=== PATIENT | female | born 1995 | race Caucasian/White ===

== ENCOUNTER 2017-03-12 11:48 | Emergency (ER) | payer OTHER ==
[2017-03-12 12:07] VITALS: BP 105/52; PULSE 61; TEMP 98.6; BMI 25.9
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
== END 2017-03-12 12:59 | disposition home or self-care (01) ==
LOC: JERFT 11:48
DX: S00.83XA Contusion of other part of head, initial encounter (principal); S29.012A Strain of muscle and tendon of back wall of thorax, initial encounter; V43.52XA Car driver injured in collision with other type car in traffic accident, initial encounter; Y92.414 Local residential or business street as the place of occurrence of the external cause; Y93.89 Activity, other specified; Y99.8 Other external cause status
CPT/HCPCS: 99281-25

== ENCOUNTER 2017-03-14 11:21 | Emergency (ER) | payer OTHER ==
--- NOTE | 2017-03-14 11:32 | PDOC ---
*Physical Exam - Physical Exam Comments: 03/14/17 11:32 MIDLEVEL NOTE Pt seen by Midlevel Provider under my direct supervision. Pt interviewed and examined. Ancillary studies reviewed. I agree with plan as outlined by Midlevel Provider. 03/14/17 11:57 EKG Normal sinus rhythm 66, normal axis Normal AV and IV conduction time Normal QTC Essentially normal EKG 03/14/17 16:08 Laboratory Results - last 24 hr 03/14/17 03/14/17 03/14/17 11:58 11:58 11:58 WBC 4.4 D RBC 4.38 Hgb 11.8 Hct 36.7 MCV 83.8 MCHC 32.3 RDW 13.8 D Plt Count 239 D MPV 10.2 Neutrophils % 42.2 L D Lymphocytes % 41.0 H D Monocytes % 8.8 Eosinophils % 6.9 H D Basophils % 1.1 Sodium 141 Potassium 4.0 Chloride 104 Carbon Dioxide 26 Anion Gap 11 BUN 7 D Creatinine 0.6 Creat Clearance w eGFR > 60 POC Glucometer Random Glucose 85 Calcium 8.3 L Total Bilirubin 0.2 D AST 12 L D ALT 18 Alkaline Phosphatase 82 D Creatine Kinase 88 Troponin I < 0.02 Total Protein 7.2 Albumin 3.6 Urine Color Ltyellow Urine Appearance Clear Urine pH 5.0 D Urine Protein Negative Urine Glucose (UA) Negative Urine Ketones Negative Urine Blood Negative Urine Nitrite Negative Urine Bilirubin Negative Urine Urobilinogen Negative Ur Leukocyte Esterase Trace H D Urine RBC <1 Urine WBC 3 Ur Epithelial Cells Moderate Urine Bacteria Rare Urine Mucus Rare Urine HCG, Qual Negative 03/14/17 13:05 WBC RBC Hgb Hct MCV MCHC RDW Plt Count MPV Neutrophils % Lymphocytes % Monocytes % Eosinophils % Basophils % Sodium Potassium Chloride Carbon Dioxide Anion Gap BUN Creatinine Creat Clearance w eGFR POC Glucometer 102.72454 Random Glucose Calcium Total Bilirubin AST ALT Alkaline Phosphatase Creatine Kinase Troponin I Total Protein Albumin Urine Color Urine Appearance Urine pH Urine Protein Urine Glucose (UA) Urine Ketones Urine Blood Urine Nitrite Urine Bilirubin Urine Urobilinogen Ur Leukocyte Esterase Urine RBC Urine WBC Ur Epithelial Cells Urine Bacteria Urine Mucus Urine HCG, Qual syncope ED Treatment Course - LABORATORY CBC & Chemistry Diagram: 03/14/17 11:58 03/14/17 11:58 *DC/Admit/Observation/Transfer Diagnosis at time of Disposition: Syncope Qualifiers: Syncope type: unspecified Qualified Code(s): R55 - Syncope and collapse - Discharge Dispostion Disposition: HOME Condition at time of disposition: Good - Patient Instructions Printed Discharge Instructions: DI for Syncope in Adults (Fainting) Additional Instructions: Please follow up with your primary care physician. Please eat small frequent well-balanced meals throughout the day. - Post Discharge Activity Work/School Note: Back to Work
[2017-03-14] MEDS ORDERED: SODIUM CHLORIDE 1,000 ML IV STA (11:43)
[2017-03-14] MEDS ORDERED: ACETAMINOPHEN 500 MG TABLET (FP) PO ONE (11:43)
[2017-03-14 11:50] VITALS: TEMP 97.8; BMI 25.7
[2017-03-14] MEDS ORDERED: ACETAMINOPHEN 325 MG TABLET (FP) ONE (12:09)
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
[2017-03-14 13:08] LABS: BASOPHIL 1.1 % (0-2.0); EOSINOPHIL 6.9 % (0-4.5); MCH 27.1 pg (25.7-33.7); MCHC 32.3 g/dl (32.0-36.0); MEAN CELL VOLUME 83.8 fl (80-96); MEAN PLT VOLUME 10.2 fl (7.5-11.1); NEUTROPHILS 42.2 % (42.8-82.8); PLATELET COUNT 239 K/MM3 (134-434); RDW 13.8 % (11.6-15.6); URINE APPEARANCE CLEAR; URINE BILIRUBIN NEGATIVE (NEGATIVE); URINE BLOOD NEGATIVE (NEGATIVE); URINE COLOR LTYELLOW; URINE GLUCOSE (UA) NEGATIVE (NEGATIVE); URINE KETONE NEGATIVE (NEGATIVE); URINE NITRITE NEGATIVE (NEGATIVE); URINE PROTEIN NEGATIVE (NEGATIVE); URINE UROBILINOGEN NEGATIVE E.U./dl (0.2-1.0); WHITE BLOOD COUNT 4.4 K/mm3 (4.0-10.0)
[2017-03-14 13:20] LABS: URINE LEUK ESTERASE TRACE (NEGATIVE)
[2017-03-14 13:21] LABS: URINE BACTERIA RARE /hpf (NONE SEEN); URINE MUCUS RARE; URINE RBC <1 /hpf (0-3); URINE WBC 3 /hpf (3-5)
[2017-03-14 13:32] LABS: ALBUMIN 3.6 g/dl (3.4-5.0); ANION GAP 11 (8-16); BILIRUBIN,TOTAL 0.2 mg/dL (0.2-1.0); CALCIUM 8.3 mg/dL (8.5-10.1); CO2 26 mmol/L (21-32); CREATININE 0.6 mg/dL (0.55-1.02); GLUCOSE,RANDOM 85 mg/dL (74-106); SGOT/AST 12 U/L (15-37); SGPT/ALT 18 U/L (12-78); TOT PROT 7.2 g/dl (6.4-8.2)
[2017-03-14 13:34] LABS: ALK PHOS 82 U/L (45-117); TROPONIN I < 0.02 ng/ml (0.00-0.05)
[2017-03-14 15:09] VITALS: BP 102/60; PULSE 62
--- NOTE | 2017-03-14 15:27 | EKG ---
Test Reason : Blood Pressure : / mmHG Vent. Rate : 066 BPM Atrial Rate : 066 BPM P-R Int : 110 ms QRS Dur : 082 ms QT Int : 382 ms P-R-T Axes : 020 056 029 degrees QTc Int : 400 ms SINUS RHYTHM WITH SHORT NM OTHERWISE NORMAL ECG NO PREVIOUS ECGS AVAILABLE Confirmed by LAKISHA VERDUZCO MD ([id number]) on 03/14/2017 3:27:17 PM Referred By: Confirmed By:LAKISHA VERDUZCO MD
== END 2017-03-14 16:07 | disposition home or self-care (01) ==
LOC: JER 11:21
PROC: 3E0337Z Introduction of Electrolytic and Water Balance Substance into Peripheral Vein, Percutaneous Approach (ICD-10-PCS; principal; 2017-03-14)
DX: R55 Syncope and collapse (principal)
CPT/HCPCS: 36415; 70450-TC; 80053; 81003; 81015; 82550; 84484; 84703; 85025; 93005; 93010; 99285-25

== ENCOUNTER 2017-05-09 11:00 | Emergency (ER) | payer OTHER ==
[2017-05-09 11:07] VITALS: BP 110/56; PULSE 60; TEMP 98.5; BMI 26.2
--- NOTE | 2017-05-09 11:24 | PDOC ---
History of Present Illness - General History Source: Patient Exam Limitations: No Limitations - History of Present Illness Initial Comments: 05/09/17 13:21 The patient is a 21-year-old woman, A0, currently approximately 4 weeks , with no past medical history who presents to the emergency department with complaints of vaginal bleeding since this morning. No trauma/fall. Patient states that she took delicia home tests last week that confirmed a . Patient states that this morning, she woke up with lower abdominal pain, described as cramping, with a rated 6/10 in severity. Upon awakening, patient noted significant amount of blood on her bed. Patient states that her bleeding has stopped but is concern for possible miscarriage. Patient has yet to start care, but has an appointment with her Air Brake Man and Early Childhood Associate Teacher tomorrow. No fever, chills, nausea,vomiting. No urinary complaints. Allergies: No Known Drug Allergies. Blueberry Past Surgical History: None reported. Social History: No tobacco, EtOH and recreational drug use. 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 <Judy Wray - Last Filed: 05/09/17 13:21> <Temitope Matos - Last Filed: 05/09/17 15:10> - General Chief Complaint: Vaginal Bleeding Stated Complaint: POSSIBLE MISCARRIAGE Time Seen by Provider: 05/09/17 11:20 Past History <Judy Wray - Last Filed: 05/09/17 13:21> - Past Medical History Anemia: Yes - Reproductive History (#): 1 Para: 0 - Psycho/Social/Smoking Cessation Hx Anxiety: No Suicidal Ideation: No Smoking Status: No Smoking History: Never smoked Have you smoked in the past 12 months: No Number of Cigarettes Smoked Daily: 0 Hx Alcohol Use: No Drug/Substance Use Hx: No Substance Use Type: None <Temitope Matos - Last Filed: 05/09/17 15:10> - Past Medical History Allergies/Adverse Reactions: Allergies Allergy/AdvReac Type Severity Reaction Status Date / Time blueberry Allergy Verified 05/09/17 11:02 Home Medications: Ambulatory Orders No Home Medications 0 dose .ROUTE UTDICT 03/02/13 Review of Systems - Review of Systems Able to Perform ROS?: Yes Comments:: 05/09/17 13:21 GENERAL/CONSTITUTIONAL: No fever or chills. No weakness. GASTROINTESTINAL: Yes: Abdominal cramping. No nausea, vomiting, diarrhea or constipation. GENITOURINARY: No dysuria, frequency, or change in urination. MUSCULOSKELETAL: No joint or muscle swelling or pain. No neck or back pain. HEMATOLOGIC/LYMPHATIC: Yes: Vaginal bleeding. No history of blood clots. <Judy Wray - Last Filed: 05/09/17 13:21> *Physical Exam - Vital Signs Last Vital Signs Temp Pulse Resp BP Pulse Ox 98.5 F 60 19 110/56 99 05/09/17 11:02 05/09/17 11:02 05/09/17 11:02 05/09/17 11:02 05/09/17 11:02 - Physical Exam Comments: 05/09/17 13:21 GENERAL: Awake, alert, and fully oriented, in no acute distress HEAD: No signs of trauma EYES: PERRLA, EOMI, sclera anicteric, conjunctiva clear ENT: Auricles normal inspection, hearing grossly normal, nares patent, oropharynx clear without exudates. Moist mucosa NECK: Normal ROM, supple, no lymphadenopathy, JVD, or masses LUNGS: Breath sounds equal, clear to auscultation bilaterally. No wheezes, and no crackles HEART: Regular rate and rhythm, normal S1 and S2, no murmurs, rubs or gallops ABDOMEN: Soft, nontender, normoactive bowel sounds. No guarding, no rebound. No masses EXTREMITIES: Normal range of motion, no edema. No clubbing or cyanosis. No cords, erythema, or tenderness NEUROLOGICAL: Cranial nerves II through XII grossly intact. Normal speech <Judy Wray - Last Filed: 05/09/17 13:21> - Vital Signs Last Vital Signs Temp Pulse Resp BP Pulse Ox 98.5 F 60 19 110/56 99 05/09/17 11:02 05/09/17 11:02 05/09/17 11:02 05/09/17 11:02 05/09/17 11:02 - Physical Exam Comments: PELVIC: No external lesions. Trace blood in the vault. Os closed. No adnexal tenderness. <Temitope Matos - Last Filed: 05/09/17 15:10> ED Treatment Course - LABORATORY CBC & Chemistry Diagram: 05/09/17 11:35 05/09/17 11:35 - ADDITIONAL ORDERS Additional order review: Laboratory Results 05/09/17 05/09/17 11:35 11:35 Sodium 139 Potassium 4.2 Chloride 104 Carbon Dioxide 29 Anion Gap 6 L BUN 10 D Creatinine 0.7 Creat Clearance w eGFR > 60 Random Glucose 86 Calcium 8.8 Total Bilirubin 0.6 D AST 14 L ALT 17 Alkaline Phosphatase 65 D Total Protein 7.5 Albumin 3.8 Beta HCG, Quant < 1.0 Blood Type B POSITIVE Antibody Screen Negative 05/09/17 11:35 RBC 4.43 MCV 81.2 MCHC 32.8 RDW 16.7 H D MPV 9.0 D Neutrophils % 34.1 L Lymphocytes % 45.6 H Monocytes % 9.1 Eosinophils % 9.8 H Basophils % 1.4 <Judy Wray - Last Filed: 05/09/17 13:21> - LABORATORY CBC & Chemistry Diagram: 05/09/17 11:35 05/09/17 11:35 <Temitope Matos - Last Filed: 05/09/17 15:10> Medical Decision Making - Medical Decision Making Patient's B-HCG negative. In light of the recent positive UCG at home, I suspect that she miscarried shortly after the UCG, then the products did not pass until today. Bleeding is minimal at present. 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 NSAIDs for pain. <Temitope Matos - Last Filed: 05/09/17 15:10> *DC/Admit/Observation/Transfer - Attestations Scribe Attestion: 05/09/17 13:21 Documentation prepared by Judy Wray, acting as medical laboratory specialist for Temitope Matos MD. <Judy Wray - Last Filed: 05/09/17 13:21> - Discharge Dispostion Admit: No <Temitope Matos - Last Filed: 05/09/17 15:10> Diagnosis at time of Disposition: Miscarriage - Discharge Dispostion Disposition: HOME Condition at time of disposition: Stable - Patient Instructions Printed Discharge Instructions: DI for Miscarriage - Post Discharge Activity Work/School Note: Back to Work
[2017-05-09 11:46] LABS: BASOPHIL 1.4 % (0-2.0); EOSINOPHIL 9.8 % (0-4.5); MCH 26.6 pg (25.7-33.7); MCHC 32.8 g/dl (32.0-36.0); MEAN CELL VOLUME 81.2 fl (80-96); NEUTROPHILS 34.1 % (42.8-82.8); PLATELET COUNT 259 K/MM3 (134-434); RDW 16.7 % (11.6-15.6); WHITE BLOOD COUNT 3.8 K/mm3 (4.0-10.0)
[2017-05-09 12:23] LABS: ALBUMIN 3.8 g/dl (3.4-5.0); ANION GAP 6 (8-16); BILIRUBIN,TOTAL 0.6 mg/dL (0.2-1.0); CALCIUM 8.8 mg/dL (8.5-10.1); CO2 29 mmol/L (21-32); CREATININE 0.7 mg/dL (0.55-1.02); GLUCOSE,RANDOM 86 mg/dL (74-106); SGOT/AST 14 U/L (15-37); SGPT/ALT 17 U/L (12-78); TOT PROT 7.5 g/dl (6.4-8.2)
[2017-05-09 12:25] LABS: ALK PHOS 65 U/L (45-117)
[2017-05-09] MEDS ORDERED: IBUPROFEN 600 MG TABLET (FP) PO ONE (13:20)
[2017-05-09 13:42] LABS: URINE APPEARANCE CLEAR; URINE BILIRUBIN NEGATIVE (NEGATIVE); URINE COLOR LTYELLOW; URINE GLUCOSE (UA) NEGATIVE (NEGATIVE); URINE KETONE NEGATIVE (NEGATIVE); URINE LEUK ESTERASE NEGATIVE (NEGATIVE); URINE NITRITE NEGATIVE (NEGATIVE); URINE PROTEIN NEGATIVE (NEGATIVE); URINE UROBILINOGEN NEGATIVE E.U./dl (0.2-1.0)
[2017-05-09 13:46] LABS: URINE BLOOD 3+ (NEGATIVE)
[2017-05-09 14:29] LABS: URINE MUCUS RARE; URINE RBC 438 /hpf (0-3); URINE WBC 6 /hpf (3-5)
== END 2017-05-09 13:34 | disposition home or self-care (01) ==
LOC: JER 11:00
DX: O02.1 Missed abortion (principal); Z3A.01 Less than 8 weeks gestation of pregnancy
CPT/HCPCS: 36415; 80053; 81003; 81015; 84702; 85025; 86850; 86900; 86901; 99282-25

== ENCOUNTER 2017-09-22 11:46 | Emergency (ER) | payer OTHER ==
[2017-09-22 11:52] VITALS: BP 133/65; PULSE 94; TEMP 98.6; BMI 26.9
[2017-09-22] MEDS ORDERED: DEXAMETHASONE LIQUID 0.5 MG/5 ML 240 ML BULK BOTTLE PO ONE (12:40)
--- NOTE | 2017-09-22 12:51 | PDOC ---
History of Present Illness - General Chief Complaint: Sore Throat Stated Complaint: THROAT PAIN Time Seen by Provider: 09/22/17 12:22 History Source: Patient Exam Limitations: No Limitations - History of Present Illness Initial Comments: 09/22/17 13:56 Patient is a 21 year-old female, no significant medical history currently on no medication, reports having sore throat for 6 days, thought she was feeling better yesterday today woke up with increased sore throat and dysphasia, no fever. Past Medical History: [Denies]. Allergies: No known allergies Medications: [None] Family History: Non-contributory Social History: Denies smoking, alcohol use, or IVDU Review of Systems GENERAL/CONSTITUTIONAL: [No fever or chills. No weakness. No weight change.] HEAD, EYES, EARS, NOSE AND THROAT: [No change in vision. No ear pain or discharge. No sore throat. ] CARDIOVASCULAR: [No chest pain or shortness of breath.] RESPIRATORY: [No cough, wheezing, or hemoptysis.] GASTROINTESTINAL: [No nausea, vomiting, diarrhea or constipation. No rectal bleeding.] GENITOURINARY: [No dysuria, frequency, or change in urination.] MUSCULOSKELETAL: [No joint or muscle swelling or pain. No neck or back pain.] SKIN : [No rash or easy bruising.] NEUROLOGIC: [No headache, vertigo, loss of consciousness, or loss of sensation.] PSYCHIATRIC: [No depression or anxiety.] ENDOCRINE: [No increased thirst. No abnormal weight change.] HEMATOLOGIC/LYMPHATIC: [No anemia, easy bleeding, or history of blood clots. Bilateral painful anterior cervical lymph nodes] ALLERGIC/IMMUNOLOGIC: [No hives or skin allergy. No latex allergy.] Physical Exam: GENERAL: [The patient is awake, alert, and fully oriented, in no acute distress. ] HEAD: [Normal with no signs of trauma.] EYES: [Pupils equal, round and reactive to light, extraocular movements intact, sclera anicteric, conjunctiva clear.] ENT: [Ears normal, nares patent, oropharynx erythematous without exudates. Moist mucous membranes. No uvula deviation] NECK: [Normal range of motion,, pain on palpation to bilateral anterior cervical lymph nodes, no JVD, or masses.] LUNGS: [Breath sounds equal, clear to auscultation bilaterally. No wheezes, and no crackles.] HEART: [Regular rate and rhythm, normal S1 and S2 without murmur, rub or gallop. ] ABDOMEN: [Soft, nontender, normoactive bowel sounds. No guarding, no rebound. No masses. No bruising or abrasions] MUSCULOSKELETAL: [Normal range of motion, no edema. No clubbing or cyanosis. No cords, erythema, or tenderness. No CVA Tenderness with fist.] NEUROLOGICAL: [Cranial nerves II through XII grossly intact. Normal speech, normal gait.] SKIN: [Warm, Dry, normal turgor, no rashes or lesions noted.] 09/22/17 14:54 Past History - Past Medical History Allergies/Adverse Reactions: Allergies Allergy/AdvReac Type Severity Reaction Status Date / Time blueberry Allergy Verified 09/22/17 11:52 Home Medications: Ambulatory Orders No Home Medications 0 dose .ROUTE UTDICT 03/02/13 Anemia: Yes COPD: No - Reproductive History (#): 1 Para: 0 Therapeutic (s) & number: No Spontaneous : 0 - Suicide/Smoking/Psychosocial Hx Smoking Status: No Smoking History: Never smoked Have you smoked in the past 12 months: No Number of Cigarettes Smoked Daily: 0 Hx Alcohol Use: No Drug/Substance Use Hx: No Substance Use Type: None *Physical Exam - Vital Signs Last Vital Signs Temp Pulse Resp BP Pulse Ox 98.6 F 94 H 20 133/65 98 09/22/17 11:49 09/22/17 11:49 09/22/17 11:49 09/22/17 11:49 09/22/17 11:49 Medical Decision Making - Medical Decision Making 09/22/17 14:00 A/P: Patient here for evaluation of sore throat for 6 days, painful bilateral anterior cervical lymph nodes with no lymphadenopathy because of painful lymph nodes to bilateral sides, will send monoscreen, rapid strep sent Strep is negative, monoscreen is pending 09/22/17 14:54 Patient positive for mono, patient discharged on supportive care increase fluids Tylenol only for fever, no Motrin or Advil or Aleve. No physical activity or gym until cleared by MD. I discussed the physical exam findings, ancillary test results and final diagnoses with the patient. I answered all of the patient's questions. The patient was satisfied with the care received and felt comfortable with the discharge plan and treatment plan. The patient will call to arrange follow-up and will return to the Emergency Department with any new, persistent or worsening symptoms. *DC/Admit/Observation/Transfer Diagnosis at time of Disposition: Mononucleosis - Discharge Dispostion Disposition: HOME Condition at time of disposition: Good Admit: No - Referrals Referrals: [facility] [Provider Group] - Patient Instructions Printed Discharge Instructions: DI for Mononucleosis-Adult Additional Instructions: 1. Increase fluid. 2. Pedialyte or Gatorade. 3. No gym, follow-up with primary care doctor for clearance to return to physical activity 4. Warm saltwater gargles. 5. Please follow up with PMD in 3 days if symptoms not resolving. 6. Please return to the ER unable to drink or eat, increased fever or other concerns Only Tylenol as needed for fever - Post Discharge Activity Forms/Work/School Notes: Back to Work, Back to School
== END 2017-09-22 14:28 | disposition home or self-care (01) ==
LOC: JERFT 11:46
DX: B27.80 Other infectious mononucleosis without complication (principal)
CPT/HCPCS: 36415; 86308; 87070; 87077; 87430; 99281-25

== ENCOUNTER 2018-01-15 04:02 | Emergency (ER) | payer OTHER ==
[2018-01-15 04:23] VITALS: BP 112/50; PULSE 74; TEMP 98; BMI 25.7
--- NOTE | 2018-01-15 04:30 | PDOC ---
History of Present Illness - General History Source: Patient Exam Limitations: No Limitations - History of Present Illness Initial Comments: 01/15/18 04:57 The patient is a 22 year old female with a significant PMH of anemia who presents to the emergency department with left eye pain and left eyelid swelling s/p syncopal episode prior to arrival. The patient reports being in the shower when she lost consciousness for a brief period and hit her head on the wall. The patient reports she is currently on her period and has been bleeding heavy, and notes this may have contributed to her syncope given her anemic history. The patient denies chest pain and shortness of breath. She denies any presyncopal symptoms. The patient denies chest pain, shortness of breath, headache and dizziness. Denies fever, chills, nausea, vomit, diarrhea and constipation. Denies dysuria, frequency, urgency and hematuria. Allergies: NKA Past surgical history: None reported. Social history: No reported cigarette, alcohol, or drug use. PCP: Dr. Ochoa <Jean Blackburn - Last Filed: 01/15/18 05:08> - General History Source: Patient <MalickKyree anderson - Last Filed: 01/15/18 06:29> - General Chief Complaint: Syncope/Near Syncope Stated Complaint: SYNCOPE Time Seen by Provider: 01/15/18 04:27 Past History <Jean Blackburn - Last Filed: 01/15/18 05:08> - Past Medical History Anemia: Yes COPD: No - Reproductive History (#): 1 Para: 0 Therapeutic (s) & number: No Spontaneous : 0 - Suicide/Smoking/Psychosocial Hx Smoking Status: No Smoking History: Never smoked Have you smoked in the past 12 months: No Number of Cigarettes Smoked Daily: 0 Information on smoking cessation initiated: No Hx Alcohol Use: No Drug/Substance Use Hx: No Substance Use Type: None <Kyree Oliva - Last Filed: 01/15/18 06:29> - Past Medical History Allergies/Adverse Reactions: Allergies Allergy/AdvReac Type Severity Reaction Status Date / Time blueberry Allergy Verified 01/15/18 04:20 Home Medications: Ambulatory Orders No Home Medications 0 dose .ROUTE UTDICT 03/02/13 Amox-Tr/K Cl [Augmentin 875Mg Tablet] 1 tab PO BID #20 tablet 01/15/18 Amoxicillin/Potassium Clav [Augmentin 875-125 Tablet] 1 each PO BID #20 tablet 01/15/18 Ibuprofen 800 mg PO TID #30 tablet 01/15/18 Oxycodone HCl/Acetaminophen [Percocet 5-325 mg Tablet] 1 - 2 tab PO Q6H #20 tablet MDD 3 01/15/18 Review of Systems - Review of Systems Able to Perform ROS?: Yes Comments:: 01/15/18 04:57 CONSTITUTIONAL: Absent: fever, chills, diaphoresis, generalized weakness, malaise, loss of appetite HEENT: (+) Left eye pain and left eyelid swelling. Absent: rhinorrhea, nasal congestion, throat pain, throat swelling, difficulty swallowing, mouth swelling, ear pain, eye pain, visual Changes CARDIOVASCULAR: Absent: chest pain, syncope, palpitations, irregular heart rate, lightheadedness , peripheral edema RESPIRATORY: Absent: cough, shortness of breath, dyspnea with exertion, orthopnea, wheezing, stridor, hemoptysis GASTROINTESTINAL: Absent: abdominal pain, abdominal distension, nausea, vomiting, diarrhea, constipation, melena, hematochezia GENITOURINARY: Absent: dysuria, frequency, urgency, hesitancy, hematuria, flank pain, genital pain MUSCULOSKELETAL: Absent: myalgia, arthralgia, joint swelling SKIN: Absent: rash, itching, pallor HEMATOLOGIC/IMMUNOLOGIC: Absent: easy bleeding, easy bruising, lymphadenopathy, frequent infections ENDOCRINE: Absent: unexplained weight gain, unexplained weight loss, heat intolerance, cold intolerance NEUROLOGIC: (+) Syncope Absent: headache, focal weakness or paresthesias, dizziness, unsteady gait, seizure, mental status changes, bladder or bowel incontinence PSYCHIATRIC: Absent: anxiety, depression, suicidal or homicidal ideation, hallucinations. <Jean Blackburn - Last Filed: 01/15/18 05:08> *Physical Exam - Vital Signs Last Vital Signs Temp Pulse Resp BP Pulse Ox 98.0 F 74 14 112/50 99 01/15/18 04:21 01/15/18 04:21 01/15/18 04:21 01/15/18 04:21 01/15/18 04:21 - Physical Exam Comments: 01/15/18 04:58 GENERAL: Well developed, well nourished. Awake and alert. No acute distress. HEENT: (+) Periorbital swelling, predominantly above left eyebrow and around left eyelid. No entrapment. No subconjunctival hemorrhage. Eyes able to be opened. Normocephalic. PERRLA, EOMI. No conjunctival pallor. Sclera are non-icteric. Moist mucous membranes. Oropharynx is clear. NECK: Supple. Full ROM. No JVD. Carotid pulses 2+ and symmetric, without bruits. No thyromegaly. No lymphadenopathy. CARDIOVASCULAR: Regular rate and rhythm. No murmurs, rubs, or gallops. Distal pulses are 2+ and symmetric. PULMONARY: No evidence of respiratory distress. Lungs clear to auscultation bilaterally. No wheezing, rales or rhonchi. ABDOMINAL: Soft. Non-tender. Non-distended. No rebound or guarding. No organomegaly. Normoactive bowel sounds. MUSCULOSKELETAL Normal range of motion at all joints. No bony deformities or tenderness. No CVA tenderness. EXTREMITIES: No cyanosis. No clubbing. No edema. No calf tenderness. SKIN: Warm and dry. Normal capillary refill. No rashes. No jaundice. NEUROLOGICAL: Alert, awake, appropriate. Cranial nerves 2-12 intact. No deficits to light touch and temperature in face, upper extremities and lower extremities. No motor deficits in the in face, upper extremities and lower extremities. Normoreflexic in the upper and lower extremities. Normal speech. Toes are downgoing bilaterally. Gait is normal without ataxia. PSYCHIATRIC: Cooperative. Good eye contact. Appropriate mood and affect. <Jean Blackburn - Last Filed: 01/15/18 05:08> - Vital Signs Last Vital Signs Temp Pulse Resp BP Pulse Ox 98.0 F 74 14 112/50 99 01/15/18 04:21 01/15/18 04:21 01/15/18 04:21 01/15/18 04:21 01/15/18 04:21 <Kyree Oliva - Last Filed: 01/15/18 06:29> Heart Score/ECG Review #1 01/15/18 05:09 Vent rate 65 bpm Normal sinus rhythm Cannot rule out anterior infarct, age undetermined Abnormal ECG <Jean Blackburn - Last Filed: 01/15/18 05:08> ED Treatment Course - LABORATORY CBC & Chemistry Diagram: 01/15/18 04:32 03/14/18 04:32 <Kyree Oliva - Last Filed: 01/15/18 06:29> Medical Decision Making - Medical Decision Making 01/15/18 06:28 Dr. Oliva: The scribe's documentation has been prepared under my direction and personally reviewed by me in its entirery. I confirm that the note above accurately reflects all work, treatment, procedures, and medical decision making performed by me. <Kyree Oliva - Last Filed: 01/15/18 06:29> *DC/Admit/Observation/Transfer - Attestations Scribe Attestion: 01/15/18 04:58 Documentation prepared by Jean Blackburn, acting as medical records specialist for Kyree Oliva DO. <Jaen Blackburn - Last Filed: 01/15/18 05:08> - Discharge Dispostion Admit: No <Kyree Oliva - Last Filed: 01/15/18 06:29> Diagnosis at time of Disposition: Syncope Qualifiers: Syncope type: vasovagal syncope Qualified Code(s): R55 - Syncope and collapse Left orbit fracture Qualifiers: Encounter type: initial encounter Fracture type: closed Qualified Code(s): S02.82XA - Fracture of other specified skull and facial bones, left side, initial encounter for closed fracture - Discharge Dispostion Condition at time of disposition: Stable - Referrals Referrals: Lynnette Ravi MD [Staff Physician] - - Patient Instructions Printed Discharge Instructions: DI for Syncope in Adults (Fainting), DI for Orbital Fracture, DI for Sinusitis Additional Instructions: take medication as directed. apply ice to the area. Follow up with the doctor referred to you. Follow up with doctor for referral to a Oral Maxillary facial Surgeon for evaluation of the fracture. - Post Discharge Activity Forms/Work/School Notes: Back to Work
[2018-01-15] MEDS ORDERED: ACETAMINOPHEN 500 MG TABLET (FP) PO ONE (04:52)
[2018-01-15] MEDS ORDERED: ACETAMINOPHEN INJECTION 100 ML IVPB ONE (04:57)
[2018-01-15] MEDS ORDERED: ACETAMINOPHEN 325 MG TABLET (FP) ONE (04:59)
[2018-01-15] MEDS ORDERED: ACETAMINOPHEN 325 MG TABLET (FP) PO ONE (04:59)
[2018-01-15 05:19] LABS: BASO % 0.6 % (0-2.0); EOS % 0.7 % (0-4.5); HEMATOCRIT 31.7 % (32.4-45.2); HEMOGLOBIN 10.3 GM/dL (10.7-15.3); LYMPH % 15.2 % (8-40); MCH 25.1 pg (25.7-33.7); MCHC 32.5 g/dl (32.0-36.0); MEAN CELL VOLUME 77.2 fl (80-96); MEAN PLT VOLUME 9.4 fl (7.5-11.1); MONO % 4.8 % (3.8-10.2); NEUT % 78.7 % (42.8-82.8); PLATELET COUNT 313 K/MM3 (134-434); RBC 4.11 M/mm3 (3.60-5.2); WHITE BLOOD COUNT 6.4 K/mm3 (4.0-10.0)
[2018-01-15 05:27] LABS: URINE APPEARANCE CLEAR; URINE BILIRUBIN NEGATIVE (NEGATIVE); URINE BLOOD 2+ (NEGATIVE); URINE COLOR YELLOW; URINE GLUCOSE (UA) NEGATIVE (NEGATIVE); URINE KETONE TRACE (NEGATIVE); URINE NITRITE NEGATIVE (NEGATIVE); URINE UROBILINOGEN NEGATIVE mg/dL (0.2-1.0)
[2018-01-15 05:31] LABS: URINE LEUK ESTERASE 1+ (NEGATIVE); URINE PROTEIN 1+ (NEGATIVE)
[2018-01-15 05:34] LABS: EPI CELLS FEW /HPF (FEW); URINE MUCUS RARE
[2018-01-15 05:34] LABS: INR 1.12 (0.82-1.09); PROTHROMBIN TIME (PATIENT) 12.7 SEC (9.98-11.88)
[2018-01-15 05:46] LABS: ALBUMIN 3.7 g/dl (3.4-5.0); ANION GAP 10 (8-16); BILIRUBIN,TOTAL 0.3 mg/dL (0.2-1.0); BLOOD UREA NITROGEN 9 mg/dL (7-18); CALCIUM 8.5 mg/dL (8.5-10.1); CHLORIDE 105 mmol/L (98-107); CO2 25 mmol/L (21-32); CREATININE 0.6 mg/dL (0.55-1.02); GLUCOSE,RANDOM 110 mg/dL (74-106); POTASSIUM 3.8 mmol/L (3.5-5.1); SGOT/AST 16 U/L (15-37); SGPT/ALT 15 U/L (12-78); SODIUM 140 mmol/L (136-145); TOT PROT 7.7 g/dl (6.4-8.2)
[2018-01-15 05:48] LABS: ALK PHOS 59 U/L (45-117)
[2018-01-15] MEDS ORDERED: AMOX TR/POT CLAV 875MG/125MG TABLETS (FP) PO STA (06:20)
[2018-01-15] MEDS ORDERED: IBUPROFEN 400 MG TABLET (FP) PO ONE ×2 (06:21→06:37)
[2018-01-15] MEDS ORDERED: AMOX TR/POT CLAV 875MG/125MG TABLETS (FP) ONE (06:36)
--- NOTE | 2018-01-15 10:47 | EKG ---
Test Reason : Blood Pressure : / mmHG Vent. Rate : 065 BPM Atrial Rate : 065 BPM P-R Int : 112 ms QRS Dur : 086 ms QT Int : 392 ms P-R-T Axes : 010 063 035 degrees QTc Int : 407 ms NORMAL SINUS RHYTHM CANNOT RULE OUT ANTERIOR INFARCT , AGE UNDETERMINED ABNORMAL ECG WHEN COMPARED WITH ECG OF 14-MAR-2017 11:41, NO SIGNIFICANT CHANGE WAS FOUND Confirmed by TYE GUPTA, SANDY ([id number]) on 01/15/2018 10:47:23 AM Referred By: Confirmed By:SANDY GAMBLE MD
== END 2018-01-15 07:01 | disposition home or self-care (01) ==
LOC: JER 04:02
DX: S02.82XA Fracture of other specified skull and facial bones, left side, initial encounter for closed fracture (principal); R55 Syncope and collapse; W22.8XXA Striking against or struck by other objects, initial encounter; Y93.E1 Activity, personal bathing and showering; Y92.012 Bathroom of single-family (private) house as the place of occurrence of the external cause; Y99.8 Other external cause status
CPT/HCPCS: 36415; 70450-TC; 70480-TC; 80053; 81003; 81015; 82550; 84484; 84703; 85025; 85610; 86850; 86900; 86901; 93005; 93010; 99281-25

== ENCOUNTER 2020-08-06 17:32 | Emergency (ER) | payer OTHER ==
[2020-08-06 17:40] VITALS: TEMP 98.1; BMI 26.6
[2020-08-06 18:01] LABS: HCG,QUALITATIVE URINE Negative
--- NOTE | 2020-08-06 18:02 | PDOC ---
History of Present Illness - General Chief Complaint: Pain, Acute Stated Complaint: lower abdominal pain Time Seen by Provider: 08/06/20 17:43 History Source: Patient Exam Limitations: No Limitations - History of Present Illness Initial Comments: 08/06/20 17:57 CHIEF COMPLAINT: 24-year-old female presents complaining of pelvic pain for several days. HISTORY OF PRESENT ILLNESS: 24-year-old female -0-2-1 4-year-old child, healthy, at home IUD in place for 4 years Menses started about 1 week ago, currently still menstruating Onset of suprapubic pain, slight yellow discharge, pain is worse with movement No urinary urgency or frequency Mild constipation, last bowel movement yesterday No nausea or vomiting No fever Positive sexually active x6 years with one partner, her partner recently broke up with her and she knows he was sleeping around, and then they got back tog ether again recently. Patient states she also had one other sexual partner after they broke up. REVIEW OF SYSTEMS: No fever or chills No headache or sore throat No chest pain, cough or shortness of breath No nausea or vomiting No urgency or frequency No diarrhea, but positive constipation, last bowel movement yesterday Positive vaginal and suprapubic discomfort, see HPI Slight yellow vaginal discharge No leg swelling or pain No skin rash Past History - Medical History Allergies/Adverse Reactions: Allergies Allergy/AdvReac Type Severity Reaction Status Date / Time blueberry Allergy Verified 01/15/18 04:20 Home Medications: Ambulatory Orders Doxycycline Hyclate 100 mg PO BID #28 tablet 08/06/20 Ibuprofen 800 mg PO TID #30 tablet 08/06/20 Metronidazole 500 mg PO BID #28 tablet 08/06/20 Anemia: Yes Asthma: No COPD: No Diabetes: No HTN: No - Reproductive History Is Patient Now?: No (#): 1 Para: 0 Therapeutic (s) & number: No Spontaneous : 0 - Immunization History Immunization Up to Date: Yes - Psycho-Social/Smoking History Smoking Status: No Smoking History: Current some day smoker Have you smoked in the past 12 months: Yes Number of Cigarettes Smoked Daily: 4 Information on smoking cessation initiated: Yes - Substance Abuse Hx (Audit-C & DAST Scrn) How often the patient has a drink containing alcohol: Monthly or less Number of drinks the patient has on a typical day: 3 or 4 How often the patient has six or more drinks on one occasion: Never Score: In Men: 4 or > Positive; In Women: 3 or > Positive: 2 Screen Result (Pos requires Nsg. Audit-10AR): Negative In the last yr the pt used illegal drug/Rx for NonMed reason: No Score: Yes response is considered Positive: 0 Screen Result (Positive result requires Nsg. DAST-10): Negative *Physical Exam - Vital Signs Last Vital Signs Temp Pulse Resp BP Pulse Ox 98.1 F 116 H 18 131/65 98 08/06/20 17:34 08/06/20 17:34 08/06/20 17:34 08/06/20 17:34 08/06/20 17:34 - Physical Exam 08/06/20 18:00 GENERAL: The patient is awake, alert, and fully oriented, in no acute distress. HEAD: Normal with no signs of trauma. EYES: Pupils equal, round and reactive to light, extraocular movements intact, sclera anicteric, conjunctiva clear. ENT: Ears normal, nares patent, oropharynx clear without exudates. Moist mucous membranes. NECK: Normal range of motion, supple without lymphadenopathy, JVD, or masses. LUNGS: Breath sounds equal, clear to auscultation bilaterally. No wheezes, and no crackles. HEART: Regular rate and rhythm, normal S1 and S2 without murmur, rub or gallop. ABDOMEN: Soft, suprapubic tenderness, increased on deep palpation, normoactive bowel sounds. No guarding, no rebound. No masses. PELVIC EXAMINATION: External genitalia: Normal without lesions. Vagina: Vault bleeding, but positive mild yellow discharge. Cervix: Long and closed with positive cervical motion tenderness. Uterus: Normal size ovaries, generalized pelvic tenderness throughout, but no specific ovarian tenderness. Adnexa: Without masses. EXTREMITIES: Normal range of motion, no edema. No clubbing or cyanosis. No cords, erythema, or tenderness. NEUROLOGICAL: Cranial nerves II through XII grossly intact. Normal speech, normal gait. PSYCH: Normal mood, normal affect. SKIN: Warm, Dry, normal turgor, no rashes or lesions noted. ED Treatment Course - LABORATORY CBC & Chemistry Diagram: 08/06/20 17:50 08/06/20 17:50 - ADDITIONAL ORDERS Additional order review: Laboratory Results 08/06/20 17:45 Urine Color Yellow Urine Appearance Clear Urine pH 6.0 Urine Protein Negative Urine Glucose (UA) Negative Urine Ketones 1+ H Urine Blood 2+ H Urine Nitrite Negative Urine Bilirubin Negative Urine Urobilinogen 1.0 Ur Leukocyte Esterase 3+ Medical Decision Making - Medical Decision Making 08/06/20 18:27 24-year-old female presents with lower abdominal pelvic pain with yellow vaginal discharge and increased to pain on movement. On physical examination she has a yellow discharge from the cervix with associated cervical motion tenderness. Of note, she states her long-term partner had broken up with her and been sleeping with other partners. The findings are most suggestive of pelvic inflammatory disease. Patient will be treated empirically with ceftriaxone IM, and oral doxycycline and Flagyl. HIV, GC, chlamydia are pending at the time of discharge. Follow-up process activated for these tests. Patient will follow-up with her [employer] manager as well. She has been instructed to use condoms and to advise her partner to be evaluated for infection. Urine is negative and patient has an IUD in place. Laboratory studies all reviewed. Patient has a mildly elevated white blood cell count, but otherwise normal laboratory studies. Urinalysis is consistent with infection, most likely related to the PID and discharge. Laboratory Results - last 24 hr 08/06/20 08/06/20 08/06/20 17:45 17:50 17:50 WBC 12.7 H RBC 4.66 Hgb 13.7 Hct 42.2 MCV 90.7 MCH 29.5 MCHC 32.5 RDW 14.2 Plt Count 234 MPV 10.9 Absolute Neuts (auto) 10.3 Neutrophils % 81.7 Lymphocytes % 13.1 Monocytes % 4.3 Eosinophils % 0.5 Basophils % 0.4 Sodium 135 L Potassium 3.5 Chloride 101 Carbon Dioxide 23 Anion Gap 11 BUN 7.0 Creatinine 0.7 Est GFR (CKD-EPI)AfAm 142.54 Est GFR (CKD-EPI)NonAf 122.98 Random Glucose 88 Calcium 9.2 Total Bilirubin 1.5 H AST 16 ALT 14 Alkaline Phosphatase 62 Total Protein 8.0 Albumin 4.4 Urine Color Yellow Urine Appearance Clear Urine pH 6.0 Urine Protein Negative Urine Glucose (UA) Negative Urine Ketones 1+ H Urine Blood 2+ H Urine Nitrite Negative Urine Bilirubin Negative Urine Urobilinogen 1.0 Ur Leukocyte Esterase 3+ Urine HCG, Qual Negative Discharge - Discharge Information Problems reviewed: Yes Clinical Impression/Diagnosis: Pelvic inflammatory disease Condition: Stable Disposition: HOME - Admission No - Additional Discharge Information Prescriptions: Doxycycline Hyclate 100 mg PO BID #28 tablet Ibuprofen 800 mg PO TID #30 tablet Metronidazole 500 mg PO BID #28 tablet - Follow up/Referral Referrals: Mack Ferreira MD [Staff Physician] - 2 Days CallBack Reminder: HIV, GC, Chlamydia - Patient Discharge Instructions Additional Instructions: Today you were evaluated for lower abdominal pain. The pelvic examination findings indicate probable pelvic inflammatory disease (PID). This is most likely a sexually transmitted infection. We will know for sure when the culture results come back in 48 hours for chlamydia and gonorrhea. You have been started on treatment in the emergency department with ceftriaxone by injection. You should take doxycycline 100 mg twice a day for 14 days and metronidazole 500 mg twice a day for 14 days. Your boyfriend should be seen by a doctor to check for infection. You should use condoms to prevent transmitting infection back and forth until both of you have been cleared from infection. Take ibuprofen 800 mg 3 times a day as needed for pain. When the pain gets better, you no longer need to take ibuprofen. The antibiotics, must be taken until finished. Follow-up with Dr. Mack Ferreira, LEPIDOPTERIST doctor, for checkup next week. His office is at the [facility] on the first floor. Return to the emergency department for any severe symptoms such as high fever, vomiting, or other worsening pain. - Post Discharge Activity
[2020-08-06 18:08] LABS: BASO % 0.4 % (0-2.0); EOS % 0.5 % (0-4.5); HEMATOCRIT 42.2 % (32.4-45.2); HEMOGLOBIN 13.7 GM/dl (10.7-15.3); LYMPH % 13.1 % (8-40); MCH 29.5 pg (25.7-33.7); MCHC 32.5 g/dl (32.0-36.0); MEAN CELL VOLUME 90.7 fl (80-96); MEAN PLT VOLUME 10.9 fl (7.5-11.1); MONO % 4.3 % (3.8-10.2); NEUT % 81.7 % (42.8-82.8); PLATELET COUNT 234 K/MM3 (134-434); RBC 4.66 M/mm3 (3.60-5.2); RDW 14.2 % (11.6-15.6); WHITE BLOOD COUNT 12.7 K/mm3 (4.0-10.8)
[2020-08-06 18:13] LABS: ALBUMIN 4.4 g/dl (3.4-5.0); BILIRUBIN,TOTAL 1.5 mg/dl (0.2-1); CALCIUM 9.2 mg/dl (8.5-10); CREATININE 0.7 mg/dl (0.55-1.3); POTASSIUM 3.5 mmol/L (3.5-5.1)
[2020-08-06] MEDS ORDERED: metroNIDAZOLE 250 MG TABLET PO ONE (18:21)
[2020-08-06] MEDS ORDERED: DOXYCYCLINE HYCLATE 100 MG CAPSULE PO ONE (18:21)
[2020-08-06 18:38] VITALS: BP 110/61; PULSE 76
[2020-08-06] MEDS ORDERED: IBUPROFEN 400 MG TABLET (FP) PO ONE (18:38)
[2020-08-06 18:44] LABS: EPITHELIAL CELLS MODERATE /hpf
== END 2020-08-06 18:53 | disposition home or self-care (01) ==
LOC: FER 17:32
DX: N73.9 Female pelvic inflammatory disease, unspecified (principal)
CPT/HCPCS: 36415; 80053; 81003; 81015; 84703; 85025; 87389; 87491; 87591; 99284-25

== ENCOUNTER 2023-12-20 12:24 | Emergency (ER) | payer OTHER ==
[2023-12-20 12:42] VITALS: BP 119/59; RESP 18; BMI 29.1
[2023-12-20] MEDS ORDERED: KETOROLAC TROMETHAMINE 30 MG/1 ML VIAL ONE (13:35)
[2023-12-20] MEDS ORDERED: ACETAMINOPHEN 500 MG TABLET (FP) ONE (13:35)
[2023-12-20] MEDS: ACETAMINOPHEN 500 MG TABLET (FP) PO ONE (13:46)
[2023-12-20] MEDS: KETOROLAC TROMETHAMINE 30 MG/1 ML VIAL IM ONE (13:46)
[2023-12-20 14:06] VITALS: PULSE 79; TEMP 100.5
== END 2023-12-20 15:23 | disposition home or self-care (01) ==
LOC: JERFT 12:24
PROC: 3E0233Z Introduction of Anti-inflammatory into Muscle, Percutaneous Approach (ICD-10-PCS; principal; 2023-12-20)
DX: J10.1 Influenza due to other identified influenza virus with other respiratory manifestations (principal); M79.10 Myalgia, unspecified site; R05.9 Cough, unspecified; R50.9 Fever, unspecified; Z20.822 Contact with and (suspected) exposure to COVID-19
CPT/HCPCS: 0241U-QW; 99284-25

== ENCOUNTER 2024-01-10 15:35 | Emergency (ER) | payer OTHER ==
[2024-01-10 15:41] VITALS: BP 120/68; PULSE 65; RESP 19; TEMP 97.9; BMI 29.9
[2024-01-10 18:44] LABS: HIV INTERPRETATION NEGATIVE (NEGATIVE)
[2024-01-10 21:46] LABS: SYPHILIS W/ RPR CONF NON-REACTIVE (NONREACTIVE)
== END 2024-01-10 17:46 | disposition home or self-care (01) ==
LOC: JERFT 15:35
DX: R10.30 Lower abdominal pain, unspecified (principal); R11.0 Nausea; N89.8 Other specified noninflammatory disorders of vagina; A63.0 Anogenital (venereal) warts
CPT/HCPCS: 36415; 86780; 87070; 87077; 87205; 87389; 87491; 87591; 87661; 99283-25

== ENCOUNTER 2024-06-30 23:31 | Emergency (ER) | payer BC, OTHER ==
[~2024-06-30 23:31] MED LIST: LIDOCAINE PATCH REMOVAL MC SCH
[2024-06-30 23:42] VITALS: BP 118/78; PULSE 63; RESP 18; TEMP 97.9; BMI 29.9
[2024-07-01] MEDS ORDERED: LIDOCAINE 4% PATCH TP ONE (00:05)
[2024-07-01] MEDS ORDERED: ACETAMINOPHEN 500 MG TABLET (FP) ONE (00:05)
[2024-07-01] MEDS: ACETAMINOPHEN 500 MG TABLET (FP) PO ONE (00:07)
[2024-07-01] MEDS: LIDOCAINE 4% PATCH TP ONE (00:08)
[2024-07-01] MEDS ORDERED: METHOCARBAMOL 500 MG TABLET ONE (00:25)
[2024-07-01] MEDS: METHOCARBAMOL 500 MG TABLET PO ONE (00:26)
[2024-07-01 00:46] LABS: EPI CELLS >36 /uL (0-25.1); HYALINE CASTS 0 /uL (0-3.1); URINE APPEARANCE CLEAR; URINE BACTERIA 1276 /uL (0-1359); URINE BILIRUBIN NEGATIVE (NEGATIVE); URINE COLOR YELLOW; URINE GLUCOSE (UA) NEGATIVE (NEGATIVE); URINE KETONE NEGATIVE (NEGATIVE); URINE LEUK ESTERASE TRACE (NEGATIVE); URINE NITRITE NEGATIVE (NEGATIVE); URINE PROTEIN NEGATIVE (NEGATIVE); URINE RBC 8 /uL (0-23.9); URINE UROBILINOGEN 0.2 mg/dL (0.2-1.0); URINE WBC 17 /uL (0-25.8)
[2024-07-01 00:59] LABS: HCG,QUALITATIVE URINE Negative
[2024-07-01] MEDS ORDERED: KETOROLAC TROMETHAMINE 15 MG/ML VIAL ONE (01:07)
[2024-07-01] MEDS: KETOROLAC TROMETHAMINE 30 MG/1 ML VIAL IM ONE (01:10)
[2024-07-01 02:49] LABS: HIV INTERPRETATION NEGATIVE (NEGATIVE)
== END 2024-07-01 01:23 | disposition home or self-care (01) ==
LOC: JER 23:31
PROC: 3E0233Z Introduction of Anti-inflammatory into Muscle, Percutaneous Approach (ICD-10-PCS; principal; 2024-07-01)
DX: M54.50 Low back pain, unspecified (principal); R35.0 Frequency of micturition; R11.0 Nausea
CPT/HCPCS: 36415; 81003; 84703; 86803; 87086; 87389; 99284-25

== ENCOUNTER 2024-11-21 11:50 | Emergency (ER) | payer BC, OTHER ==
[2024-11-21 12:03] VITALS: BMI 28.3
[2024-11-21] MEDS ORDERED: FAMOTIDINE 20 MG/50 ML IVPB 20 MG/50 ML MG IVPB ONE (13:10)
[2024-11-21] MEDS ORDERED: ONDANSETRON 4 MG/2 ML VIAL ONE (13:11)
[2024-11-21] MEDS: ONDANSETRON 4 MG/2 ML VIAL IVPUSH ONE (13:26)
[2024-11-21] MEDS: SODIUM CHLORIDE 0.9% 500 ML INFUS.BAG IV ONE (13:26)
[2024-11-21] MEDS: FAMOTIDINE 20 MG/50 ML IVPB 20 MG/50 ML MG IVPB ONE (13:26)
[2024-11-21 13:31] LABS: BASO % 0.7 % (0-2.0); HEMOGLOBIN 14.5 GM/dL (10.7-15.3); LYMPH % 35.7 % (8-40); MCH 28.8 pg (25.7-33.7); MEAN CELL VOLUME 87.3 fl (80-96); MEAN PLT VOLUME 9.2 fl (7.5-11.1); MONO % 11.1 % (3.8-10.2); NEUT % 49.5 % (42.8-82.8); PLATELET COUNT 272 10^3/uL (134-434); RBC 5.04 M/mm3 (3.60-5.2); RDW 13.4 % (11.6-15.6); WHITE BLOOD COUNT 3.7 K/mm3 (4.0-10.0)
[2024-11-21 13:49] LABS: POTASSIUM 4.2 mmol/L (3.5-5.1)
[2024-11-21 13:51] LABS: CALCIUM 9.5 mg/dL (8.5-10.1)
[2024-11-21 13:52] LABS: ALBUMIN 4.3 g/dl (3.4-5.0); BLOOD UREA NITROGEN 6.2 mg/dL (7-18)
[2024-11-21 13:55] LABS: CREATININE 0.8 mg/dL (0.55-1.3)
[2024-11-21 13:56] LABS: BILIRUBIN,TOTAL 0.6 mg/dL (0.2-1); TOT PROT 8.6 g/dl (6.4-8.2)
[2024-11-21 15:14] VITALS: BP 118/56; PULSE 65; RESP 18; TEMP 98.1
[2024-11-21 15:24] LABS: HIV INTERPRETATION NEGATIVE (NEGATIVE)
== END 2024-11-21 16:18 | disposition home or self-care (01) ==
LOC: JER 11:50
PROC: 3E033GC Introduction of Other Therapeutic Substance into Peripheral Vein, Percutaneous Approach (ICD-10-PCS; principal; 2024-11-21)
PROC: 3E033GC Introduction of Other Therapeutic Substance into Peripheral Vein, Percutaneous Approach (ICD-10-PCS; 2024-11-21)
DX: K52.9 Noninfective gastroenteritis and colitis, unspecified (principal); B34.9 Viral infection, unspecified; R10.13 Epigastric pain; R11.0 Nausea
CPT/HCPCS: 36415; 80053; 83690; 84703; 85025; 86803; 87389; 99284-25

== ENCOUNTER 2025-04-30 16:25 | Emergency (ER) | payer BC ==
[2025-04-30 16:33] VITALS: BP 105/60; PULSE 57; RESP 18; TEMP 98.3; BMI 27.4
[2025-04-30 18:01] LABS: URINE APPEARANCE CLEAR; URINE BILIRUBIN NEGATIVE (NEGATIVE); URINE COLOR YELLOW; URINE GLUCOSE (UA) NEGATIVE (NEGATIVE); URINE KETONE 1+ (NEGATIVE); URINE LEUK ESTERASE NEGATIVE (NEGATIVE); URINE NITRITE NEGATIVE (NEGATIVE); URINE PROTEIN NEGATIVE (NEGATIVE); URINE UROBILINOGEN 0.2 mg/dL (0.2-1.0)
[2025-04-30 18:58] LABS: ABSOLUTE IMMATURE GRANULOCYTES 0.02 x10^3/uL (0.0-0.031); BASOPHILS # 0.05 x10^3/uL (0.01-0.08); EOSINOPHIL % 3.4 % (0.7-5.8); EOSINOPHILS # 0.25 x10^3/uL (0.04-0.36); HEMATOCRIT 40.5 % (34.1-44.9); HEMOGLOBIN 13.1 g/dL (11.2-15.7); MCHC 32.3 g/dl (32.2-35.5); MEAN CELL VOLUME 90.4 fl (79.4-94.8); MEAN PLT VOLUME 12.1 fl (9.4-12.3); MONOCYTE # 0.57 x10^3/uL (0.24-0.86); MONOCYTE % 7.7 % (4.7-12.5); PLATELET COUNT 271 x10^3/uL (182-369); RDW 12.9 % (12.1-16.5)
[2025-04-30 19:05] LABS: INR 1.07 (0.83-1.09); PROTHROMBIN TIME (PATIENT) 11.8 SEC (9.7-13.0)
[2025-04-30 19:08] LABS: ACTIVATED PTT 27.4 SECONDS (25.2-36.5)
[2025-04-30] MEDS ORDERED: ACETAMINOPHEN 325 MG TABLET (FP) ONE (19:20)
[2025-04-30 19:26] LABS: POTASSIUM 3.6 mmol/L (3.5-5.1)
[2025-04-30] MEDS: SODIUM CHLORIDE 1,000 ML IV ONE (19:26)
[2025-04-30] MEDS: ACETAMINOPHEN 325 MG TABLET (FP) PO ONE (19:26)
[2025-04-30 19:29] LABS: CALCIUM 9.9 mg/dL (8.5-10.1)
[2025-04-30 19:33] LABS: CREATININE 0.8 mg/dL (0.55-1.3)
[2025-04-30 20:19] LABS: HCV DIAGNOSTIC IN-HOUSE W/RFLX NON-REACTIVE (NONREACTIVE); HIV INTERPRETATION NEGATIVE (NEGATIVE)
== END 2025-04-30 20:38 | disposition home or self-care (01) ==
LOC: JER 16:25
PROC: 3E0337Z Introduction of Electrolytic and Water Balance Substance into Peripheral Vein, Percutaneous Approach (ICD-10-PCS; principal; 2025-04-30)
DX: N83.202 Unspecified ovarian cyst, left side (principal); R10.2 Pelvic and perineal pain; R10.31 Right lower quadrant pain; R10.32 Left lower quadrant pain
CPT/HCPCS: 36415; 76830-TC; 80048; 81003; 85025; 85610; 85730; 86803; 86850; 86900; 86901; 87086; 87389; 99284-25